=== PATIENT | male | born 1955 | race African-American/Black ===

== ENCOUNTER 2023-07-30 12:07 | Emergency (ER) | payer MEDICAID, OTHER ==
[~2023-07-30] VITALS: Ht 190.5 cm; Wt 76.0 kg
[~2023-07-30 12:07] MED LIST: METF-873 PO
[2023-07-30 12:27] VITALS: O2SAT 98
[2023-07-30 14:38] LABS: HEMATOCRIT. 32.1 % (42.0-52.0); MEAN CORPUSCULAR HEMOGLOBIN 22.8 pg (28.0-32.0); MEAN CORPUSCULAR VOLUME 73.4 fL (80.0-94.0); MEAN PLATELET VOLUME 9.5 fl (7.4-10.4); PLATELET 318 x1000/uL (130-400); RED BLOOD CELL COUNT 4.37 mill/uL (4.7-6.1); RED CELL DISTRIBUTION WIDTH 13.9 % (11.6-14.6); WHITE BLOOD COUNT 16.3 x1000/uL (4.5-11.0)
[2023-07-30 14:42] LABS: DIFFERENTIAL COMMENT 1
[2023-07-30 14:50] LABS: CHLORIDE 97 mEq/L (98-107); INDEX HEMOLYSI 1 (1-3); INDEX ICTERIC 1 (1-4); INDEX LIPEMIC 1 (1-3); POTASSIUM 4.2 mEq/L (3.5-5.1); SODIUM 132 mEq/L (136-145)
[2023-07-30 14:57] LABS: ALANINE AMINOTRANSFERASE 16 IU/L (13-61); ALBUMIN 3.3 g/dL (3.4-5.0); ASPARTATE AMINOTRANSFERASE 8 IU/L (15-37); BILIRUBIN TOTAL 0.5 mg/dL (0.1-1.0); CALCIUM 9.5 mg/dL (8.5-10.1); CARBON DIOXIDE 27 mEq/L (21-32); CREATININE 1.4 mg/dL (0.6-1.3); PROTEIN TOTAL 8.8 g/dL (6.0-8.3); UREA NITROGEN BLOOD 25 mg/dL (7-21)
[2023-07-30 15:08] LABS: CLARITY URINE CLEAR (CLEAR); COLOR URINE YELLOW (YELLOW); GLUCOSE URINE 3+ (NEGATIVE); KETONES URINE TRACE (NEGATIVE); LEUKOCYTE ESTERASE URINE NEGATIVE (NEGATIVE); NITRITE URINE NEGATIVE (NEGATIVE); OCCULT BLOOD URINE 1+ (NEGATIVE); PH URINE 5.5 (4.5-8.0); PROTEIN URINE 3+ (NEGATIVE); SPECIFIC GRAVITY URINE 1.026 (1.005-1.030); UROBILINOGEN URINE 0.2 E.U./dL (0.2-1.0)
[2023-07-30 15:09] LABS: GLUCOSE 416 mg/dL (70-105)
[2023-07-30 15:35] LABS: BACTERIA URINE FEW; RBC URINE 0-2 /hpf (0-2); SQUAMOUS EPITHELIAL CELL URINE NONE SEEN /lpf (RARE/1+); WBC URINE 0-2 /hpf (0-2); YEAST URINE NONE SEEN
[2023-07-30] MEDS ORDERED: IBUP-2030 MT (16:01)
[2023-07-30] MEDS ORDERED: METF-414 MT (16:01)
[2023-07-30] MEDS ORDERED: DOXY100T28 MT (16:01)
[2023-07-30 16:49] VITALS: BP 115/78; PULSE 85; RESP 18; TEMP 98.1
[2023-07-30 18:04] LABS: HYPOCHROMASIA 1+; MICROCYTOSIS 2+; PLATELET ESTIMATE NORMAL
[2023-07-30 18:05] LABS: ANISOCYTOSIS 1+
== END 2023-07-30 16:50 | disposition home or self-care (01) ==
LOC: ER 12:07
DX: E11.622 Type 2 diabetes mellitus with other skin ulcer (principal); D72.829 Elevated white blood cell count, unspecified; D64.9 Anemia, unspecified
CPT/HCPCS: 36415; 73630; 80053; 81003; 83605; 84145; 85025; 99284